=== PATIENT | male | born 1945 | race Caucasian/White ===

== ENCOUNTER 2017-01-29 17:01 | Emergency (ER) | payer BC, MEDICARE ==
[2017-01-29 17:29] VITALS: TEMP 98.9
[2017-01-29] MEDS ORDERED: ONDANSETRON 4 MG/2 ML VIAL IVP STA (18:33)
[2017-01-29] MEDS ORDERED: MORPHINE SULFATE 4 MG/ML SYRINGE IV STA (18:33)
[2017-01-29] MEDS ORDERED: SODIUM CHLORIDE 0.9% 1,000 ML IV STA ×2 (18:33)
[2017-01-29] MEDS ORDERED: RX INFO: IV CONTRAST WAS GIVEN 1 EACH MISC MISCELLANE PRN (18:33)
--- NOTE | 2017-01-29 18:44 | ED ---
Abdominal Pain HPI - General Chief Complaint: Abdominal Pain Stated Complaint: Left Lower Side Pain Time Seen by Provider: 01/29/17 18:17 Source: patient, RN notes reviewed, old records reviewed Mode of arrival: ambulatory Limitations: no limitations - History of Present Illness Initial Comments: This is a 71-year-old male presenting to emergency Department chief complaint of left lower quadrant abdominal pain for the past 12 hours. Patient reports that he started noticed this pain this morning. He states that he had a normal bowel movement earlier today but then afterwards he had some episodes of diarrhea. He states that he's had no fever or chills. He reports the pain is worse whenever he has to do certain movements. He states is a 1 out of 10 while lying flat. He states it was worse whenever headache over bumps in the car. He states he's had no vomiting. Normal urination, denies any hematuria or dysuria. Patient has a past medical history of vasectomy, bilateral shoulder surgeries. She reports these had a colonoscopy in the past which showed that he may have a few polyps. Denies any history of diverticulosis. - Related Data Home Medications Medication Instructions Recorded Confirmed Aspirin 81 mg PO DAILY 02/04/15 01/29/17 Losartan Potassium [Cozaar] 100 mg PO DAILY 01/29/17 01/29/17 Mirabegron [Myrbetriq] 25 mg PO DAILY 01/29/17 01/29/17 amLODIPine [Norvasc] 5 mg PO DAILY 01/29/17 01/29/17 metFORMIN HCL [Glucophage] 500 mg PO BID 01/29/17 01/29/17 Previous Rx's Medication Instructions Recorded Acetaminophen-Codeine 300-30mg 1 tab PO Q6H PRN #12 tablet 01/29/17 [Tylenol #3] Ciprofloxacin HCl [Cipro] 500 mg PO Q12HR 10 Days 01/29/17 metroNIDAZOLE [Flagyl] 500 mg PO TID #30 tab 01/29/17 Allergies Allergy/AdvReac Type Severity Reaction Status Date / Time Penicillins Allergy Confusion Verified 01/29/17 19:11 Sulfa (Sulfonamide Allergy Confusion Verified 01/29/17 19:11 Antibiotics) Review of Systems ROS Statement: Those systems with pertinent positive or pertinent negative responses have been documented in the HPI. ROS Other: All systems not noted in ROS Statement are negative. Past Medical History Past Medical History: Diabetes Mellitus, Hypertension History of Any Multi-Drug Resistant Organisms: None Reported Past Surgical History: Orthopedic Surgery Past Psychological History: No Psychological Hx Reported Smoking Status: Never smoker Past Alcohol Use History: None Reported Past Drug Use History: None Reported General Exam - General Exam Comments Initial Comments: This is a 71-year-old male. Patient does not appear to be in any acute distress. Limitations: no limitations General appearance: alert, in no apparent distress Head exam: Present: atraumatic, normocephalic, normal inspection Eye exam: Present: normal appearance, PERRL, EOMI. Absent: scleral icterus, conjunctival injection, periorbital swelling ENT exam: Present: normal exam, mucous membranes moist Neck exam: Present: normal inspection. Absent: tenderness, meningismus, lymphadenopathy Respiratory exam: Present: normal lung sounds bilaterally. Absent: respiratory distress, wheezes, rales, rhonchi, stridor Cardiovascular Exam: Present: regular rate, normal rhythm, normal heart sounds. Absent: systolic murmur, diastolic murmur, rubs, gallop, clicks GI/Abdominal exam: Present: soft, tenderness, normal bowel sounds, hernia ( Patient has evidence of ventral hernia. No erythema or tenderness over the site. Patient is tender over the left lower quadrant.), other. Absent: distended, guarding, rebound, rigid Extremities exam: Present: normal inspection, full ROM, normal capillary refill. Absent: tenderness, pedal edema, joint swelling, calf tenderness Back exam: Present: normal inspection Neurological exam: Present: alert, oriented X3, CN II-XII intact Psychiatric exam: Present: normal affect, normal mood Skin exam: Present: warm, dry, intact, normal color. Absent: rash Course Vital Signs 01/29/17 17:25 Temperature 98.9 F Pulse Rate 99 Respiratory 18 Rate Blood Pressure 142/91 O2 Sat by Pulse 96 Oximetry Medical Decision Making - Medical Decision Making 71-year-old male chief complaint of left lower quadrant abdominal pain for the past day. Patient received IV fluids and lab work. Patient is given morphine and Zofran for pain and nausea. Patient labwork showed mildly elevated leukocyte doses of 10.8. Liver enzymes and pancreatic enzymes appear normal. He is somewhat tender to the left lower quadrant. There is also a ventral hernia noted. He has no tenderness to the hernia site. Patient received a CT abdomen and pelvis with contrast. CT abdomen shows evidence of diverticulitis. Patient will be started on Cipro and Flagyl in the emergency department. Discussed that patient cannot have alcohol with these drugs. Discussed close follow-up with primary care physician. Patient will be discharged with pain medication. Return parameters were discussed. - Lab Data Result diagrams: 01/29/17 18:55 01/29/17 18:55 Lab Results 01/29/17 01/29/17 01/29/17 Range/Units 18:55 18:55 18:55 WBC 10.8 H (3.8-10.6) k/uL RBC 5.14 (4.30-5.90) m/uL Hgb 16.3 (13.0-17.5) gm/dL Hct 49.4 (39.0-53.0) % MCV 96.1 (80.0-100.0) fL MCH 31.7 (25.0-35.0) pg MCHC 33.0 (31.0-37.0) g/dL RDW 14.4 (11.5-15.5) % Plt Count 197 (150-450) k/uL Neutrophils % 76 % Lymphocytes % 15 % Monocytes % 5 % Eosinophils % 2 % Basophils % 1 % Neutrophils # 8.3 H (1.3-7.7) k/uL Lymphocytes # 1.7 (1.0-4.8) k/uL Monocytes # 0.5 (0-1.0) k/uL Eosinophils # 0.2 (0-0.7) k/uL Basophils # 0.1 (0-0.2) k/uL Sodium 141 (137-145) mmol/L Potassium 4.4 (3.5-5.1) mmol/L Chloride 105 (98-107) mmol/L Carbon Dioxide 26 (22-30) mmol/L Anion Gap 10 mmol/L BUN 10 (9-20) mg/dL Creatinine 0.79 (0.66-1.25) mg/dL Est GFR (MDRD) Af Amer >60 (>60 ml/min/1.73 sqM) Est GFR (MDRD) Non-Af >60 (>60 ml/min/1.73 sqM) Glucose 132 H (74-99) mg/dL Calcium 9.4 (8.4-10.2) mg/dL Total Bilirubin 0.3 (0.2-1.3) mg/dL AST 22 (17-59) U/L ALT 41 (21-72) U/L Alkaline Phosphatase 70 (38-126) U/L Total Protein 7.5 (6.3-8.2) g/dL Albumin 4.6 (3.5-5.0) g/dL Amylase 40 (30-110) U/L Lipase 105 (23-300) U/L Urine Color Yellow Urine Appearance Clear (Clear) Urine pH 5.5 (5.0-8.0) Ur Specific [place] 1.014 (1.001-1.035) Urine Protein Negative (Negative) Urine Glucose (UA) 3+ H (Negative) Urine Ketones Negative (Negative) Urine Blood Negative (Negative) Urine Nitrite Negative (Negative) Urine Bilirubin Negative (Negative) Urine Urobilinogen <2.0 (<2.0) mg/dL Ur Leukocyte Esterase Negative (Negative) - Radiology Data Radiology results: report reviewed Laboratory changes around the proximal sigmoid colon consistent with diverticulitis. No drainable fluid collection. Liver is normal size and contour. There is a 2 cm rounded hypodensity in the left lobe of the liver consistent with a cyst. Clips are cholecystectomy. Bowel gas are not dilated. No adrenal mass. Kidneys appear normal. No hydronephrosis. There is some thickening of the left side of the pain. Inflammatory changes of the descending colon and sigmoid colon multi didn't pull diverticula sigmoid colon. Appendix is normal. Disposition Clinical Impression: Diverticulitis Disposition: HOME SELF-CARE Condition: Good Instructions: Diverticulitis (ED), Diverticulitis Diet (ED) Additional Instructions: Advised of close follow-up with primary care physician. Take all the antibiotics as prescribed. Return to the emergency department if any alarming signs or symptoms occur. Prescriptions: Acetaminophen-Codeine 300-30mg [Tylenol #3] 1 tab PO Q6H PRN #12 tablet PRN Reason: Pain Ciprofloxacin HCl [Cipro] 500 mg PO Q12HR 10 Days metroNIDAZOLE [Flagyl] 500 mg PO TID #30 tab Referrals: Fede Walker MD [Primary Care Provider] - 1-2 days Time of Disposition: 20:13
[2017-01-29 19:06] LABS: Basophils # (A) 0.1 k/uL (0-0.2); Basophils % (A) 1 %; CH 33.1; CHCM 34.6; Eosinophils # (A) 0.2 k/uL (0-0.7); Eosinophils % (A) 2 %; HCT 49.4 % (39.0-53.0); HDW 2.65; HGB 16.3 gm/dL (13.0-17.5); Luc # (Auto) 0.12; Luc % (Auto) 1; Lymphocytes # (A) 1.7 k/uL (1.0-4.8); Lymphocytes % (A) 15 %; MCH 31.7 pg (25.0-35.0); MCV 96.1 fL (80.0-100.0); Mean Platelet Volume 7.9; Monocytes # (A) 0.5 k/uL (0-1.0); Monocytes % (A) 5 %; Neutrophils # (A) 8.3 k/uL (1.3-7.7); Neutrophils % (A) 76 %; RBC 5.14 m/uL (4.30-5.90); RDW 14.4 % (11.5-15.5); WBC 10.8 k/uL (3.8-10.6); WBC (Perox) 10.95
[2017-01-29 19:07] LABS: Appearance,Urine Clear (Clear); Bilirubin,Urine Negative (Negative); Glucose,Urine (UA) 3+ (Negative); Ketones,Urine Negative (Negative); Leukocyte Esterase,Urine Negative (Negative); Nitrite,Urine Negative (Negative); PH, Urine 5.5 (5.0-8.0); Protein,Urine Negative (Negative); Specific Gravity,Urine 1.014 (1.001-1.035); UA Billing (MACRO vs. MICRO) CHEM; Urobilinogen,Urine <2.0 mg/dL (<2.0)
[2017-01-29 19:15] LABS: ALT 41 U/L (21-72); AST 22 U/L (17-59); Alkaline Phosphatase 70 U/L (38-126); Amylase 40 U/L (30-110); Anion Gap 10 mmol/L; Blood Urea Nitrogen 10 mg/dL (9-20); Calcium 9.4 mg/dL (8.4-10.2); Carbon Dioxide 26 mmol/L (22-30); Chloride 105 mmol/L (98-107); Glucose 132 mg/dL (74-99); Non-African American GFR(MDRD) >60 (>60 ml/min/1.73 sqM); Potassium 4.4 mmol/L (3.5-5.1); Sodium 141 mmol/L (137-145); Total Bilirubin 0.3 mg/dL (0.2-1.3); Total Protein 7.5 g/dL (6.3-8.2)
--- NOTE | 2017-01-29 20:08 | CT ---
EXAMINATION TYPE: CT abdomen pelvis w con DATE OF EXAM: 01/29/2017 COMPARISON: NONE HISTORY: LLQ pain today. CT DLP: 1184.3 mGycm Automated exposure control for dose reduction was used. TECHNIQUE: Helical acquisition of images was performed from the lung bases through the pelvis. CONTRAST: Performed without Oral Contrast and with IV Contrast, patient injected with 100 mL of Omnipaque 300. FINDINGS: There is patchy linear density at the lung bases. There is no pleural effusion. Liver has normal size and contour. There is a 2 cm rounded hypodensity in the left lobe of the liver consistent with a cyst. There are clips from cholecystectomy. Bile ducts are not dilated. There is no pancreatic mass. Spleen appears normal. There is no adrenal mass. Kidneys show satisfactory contrast opacification. There is no hydronephrosi s. There is some thickening of the left side anterior pararenal space. There are some inflammatory ch anges at the junction of descending colon and sigmoid colon. There are multiple diverticula in the si gmoid colon. Appendix appears normal. Bladder distends smoothly. There is no pelvic mass. There is no retroperitoneal adenopathy. I see no bony destructive process. IMPRESSION: INFLAMMATORY CHANGES AROUND THE PROXIMAL SIGMOID COLON CONSISTENT WITH DIVERTICULITIS. NO DRAINABLE F LUID COLLECTION. MODERATE SIGMOID DIVERTICULOSIS. SMALL HEPATIC CYST. PATCHY FIBROSIS AND ATELECTASIS AT THE LUNG BASES.
[2017-01-29] MEDS ORDERED: metroNIDAZOLE 500 MG TAB PO STA (20:13)
[2017-01-29] MEDS ORDERED: LEVOFLOXACIN 750 MG TAB PO STA (20:13)
[2017-01-29 20:45] VITALS: BP 140/82; PULSE 91; RESP 17
== END 2017-01-29 20:32 | disposition home or self-care (01) ==
LOC: EC 17:01
DX: K57.32 Diverticulitis of large intestine without perforation or abscess without bleeding (principal); K43.9 Ventral hernia without obstruction or gangrene; E11.9 Type 2 diabetes mellitus without complications; I10 Essential (primary) hypertension; Z79.82 Long term (current) use of aspirin; Z79.84 Long term (current) use of oral hypoglycemic drugs; Z79.899 Other long term (current) drug therapy; Z88.0 Allergy status to penicillin; Z88.2 Allergy status to sulfonamides
CPT/HCPCS: 99284 ×2; 96374 ×2; 96375 ×2; 96361 ×2; 36415; 80053; 82150; 83690; 85025; 81003; 74177; J2270; J2405; Q9967

== ENCOUNTER 2017-12-14 07:49 | Day surgery (SDC) | payer MEDICARE ==
[2017-12-08 14:38] VITALS: BMI 28.7
[~2017-12-14 07:49] MED LIST: LACTATED RINGERS 1,000 ML IV SCH
[2017-12-14 08:11] LABS: Glucose,Whole Blood 107 mg/dL (75-99)
[2017-12-14] MEDS ORDERED: LIDOCAINE 1% INJ 10MG/ML (20 ML MDV) ONE (08:25)
[2017-12-14] MEDS ORDERED: PROPOFOL 10 MG/ML 20 ML VIAL IV ONE ×2 (08:25)
--- NOTE | 2017-12-14 08:29 | P.GSHP ---
History of Present Illness H&P Date: 12/14/17 Chief Complaint: Colon cancer screening Patient here today for colonoscopy. Last colonoscopy 5 years ago. History of colon polyps. Also had a history of diverticulitis 7-8 months ago. No current bowel related complaints. Past Medical History Past Medical History: Diabetes Mellitus, Hypertension History of Any Multi-Drug Resistant Organisms: None Reported Past Surgical History: Cholecystectomy, Orthopedic Surgery Additional Past Surgical History / Comment(s): Mohamud. shoulder surg x 4; Colonoscopy; Cataracts Past Anesthesia/Blood Transfusion Reactions: No Reported Reaction Smoking Status: Never smoker - Past Family History Sister(s) Family Medical History: Cancer Additional Family Medical History / Comment(s): Breast CA Medications and Allergies Home Medications Medication Instructions Recorded Confirmed Type Aspirin 81 mg PO DAILY 02/04/15 12/08/17 History Acetaminophen-Codeine 300-30mg 1 tab PO Q6H PRN #12 tablet 01/29/17 12/14/17 Rx [Tylenol #3] Losartan Potassium [Cozaar] 100 mg PO DAILY 01/29/17 12/08/17 History Mirabegron [Myrbetriq] 25 mg PO DAILY 01/29/17 12/08/17 History amLODIPine [Norvasc] 5 mg PO DAILY 01/29/17 12/08/17 History metFORMIN HCL [Glucophage] 500 mg PO BID 01/29/17 12/08/17 History Allergies Allergy/AdvReac Type Severity Reaction Status Date / Time Penicillins Allergy Confusion Verified 12/14/17 08:03 Sulfa (Sulfonamide Allergy Confusion Verified 12/14/17 08:03 Antibiotics) Surgical - Exam Physical exam: General: Well-developed, well-nourished HEENT: Normocephalic, sclerae nonicteric Abdomen: Nontender, nondistended Extremities: No edema Neuro: Alert and oriented Results - Labs Abnormal Lab Results - Last 24 Hours (Table) 12/14/17 Range/Units 08:08 POC Glucose (mg/dL) 107 H (75-99) mg/dL Assessment and Plan (1) Colon cancer screening Narrative/Plan: Will proceed with colonoscopy at this time Current Visit: Yes Status: Acute Code(s): Z12.11 - ENCOUNTER FOR SCREENING FOR MALIGNANT NEOPLASM OF COLON SNOMED Code(s): 381202580
[2017-12-14 08:33] VITALS: RESP 16; TEMP 97.3
--- NOTE | 2017-12-14 08:40 | P.PCN ---
Date of Procedure: 12/14/17 Procedure(s) Performed: PREOPERATIVE DIAGNOSIS: Colon cancer screening POSTOPERATIVE DIAGNOSIS: Extensive diverticulosis PROCEDURE: Colonoscopy ANESTHESIA: MAC SURGEON: Jaylan Babb M.D. SPECIMENS: None ENDOSCOPIC PROCEDURE: The patient was placed on the endoscopy table in the left decubitus position. The Olympus colonoscope was inserted into the anus and passed under direct visualization to the base of the cecum. The appendiceal orifice was visualized. From that point the scope was slowly withdrawn inspecting all surfaces carefully. There were no neoplastic inflammatory or polypoid lesions throughout the cecum, ascending, transverse, descending, sigmoid and rectum. There was extensive diverticulosis noted throughout the left colon. Digital rectal examination was normal. The patient was taken to the recovery room in stable condition per anesthesia guidelines. RECOMMENDATIONS: Increase fiber. Follow-up colonoscopy in 5 years.
[2017-12-14 09:07] VITALS: BP 114/76; PULSE 68
== END 2017-12-14 09:48 | disposition home or self-care (01) ==
LOC: ORWHC2ENDO 07:49
PROVIDERS: ATTEND Surgery
DX: Z12.11 Encounter for screening for malignant neoplasm of colon (principal); K57.30 Diverticulosis of large intestine without perforation or abscess without bleeding; E11.9 Type 2 diabetes mellitus without complications; I10 Essential (primary) hypertension; Z90.49 Acquired absence of other specified parts of digestive tract; Z79.82 Long term (current) use of aspirin; Z79.899 Other long term (current) drug therapy; Z80.3 Family history of malignant neoplasm of breast; Z79.84 Long term (current) use of oral hypoglycemic drugs; Z88.0 Allergy status to penicillin; Z88.2 Allergy status to sulfonamides
CPT/HCPCS: J2001; J2704; G0105; 45378

== ENCOUNTER 2021-04-30 08:49 | Emergency (ER) | payer MEDICARE ==
[2021-04-30 08:54] VITALS: RESP 18
--- NOTE | 2021-04-30 09:15 | ED ---
General Adult HPI - General Chief complaint: Weakness Stated complaint: covid+, wants infusion Time Seen by Provider: 04/30/21 08:59 Source: patient Mode of arrival: ambulatory Limitations: no limitations - History of Present Illness Initial comments: Dictation was produced using [employer] dictation software. please excuse any grammatical, word or spelling errors. Chief Complaint: 75-year-old male with positive coronavirus tests presents emergency department for weakness History of Present Illness: 75-year-old male. He's been symptomatic of coronavirus for the last 6 days. He had a test done 2 days ago tested positive. Presents to the emergency department today for evaluation. Patient states she has no shortness of breath. He also has constitutional symptoms and diarrhea. Patient denies any chest pain. Denies any medical problems. The ROS documented in this emergency department record has been reviewed and confirmed by me. Those systems with pertinent positive or negative responses have been documented in the HPI. All other systems are other negative and/or noncontributory. PHYSICAL EXAM: General Impression: Alert and oriented x3, not in acute distress HEENT: Normocephalic atraumatic, extra-ocular movements intact, pupils equal and reactive to light bilaterally, mucous membranes moist. Cardiovascular: Heart regular rate and rhythm Chest: Able to complete full sentences, no retractions, no tachypnea Abdomen: abdomen soft, non-tender, non-distended, no organomegaly Musculoskeletal: Pulses present and equal in all extremities, no peripheral edema Motor: no focal deficits noted Neurological: CN II-XII grossly intact, no focal motor or sensory deficits noted Skin: Intact with no visualized rashes Psych: Normal affect and mood ED course: Patient is 75-year-old male tested positive for coronavirus 2 days ago. His been symptomatic for the last 6 days. He denies any medical problems. His chief complaint today's weakness. Vital signs upon arrival shows 93% on room air, heart rate of 107, rest of vital signs within acceptable limits.Laboratory evaluation obtained. CBC unremarkable. Metabolic panel shows mild sodium 131, mild acidosis. Rest of labs unremarkable. Chest x-ray shows basilar atelectasis versus early infiltrate. Ambulatory pulse ox is 92%. Patient reevaluated at bedside found to be in stable medical condition. Patient given monoclonal antibodies. Observed in emergency department for one hour after infusion and discharged. - Related Data Home Medications Medication Instructions Recorded Confirmed Aspirin 81 mg PO DAILY 02/04/15 12/08/17 Losartan Potassium [Cozaar] 100 mg PO DAILY 01/29/17 12/08/17 Mirabegron [Myrbetriq] 25 mg PO DAILY 01/29/17 12/08/17 amLODIPine [Norvasc] 5 mg PO DAILY 01/29/17 12/08/17 metFORMIN HCL [Glucophage] 500 mg PO BID 01/29/17 12/08/17 Previous Rx's Medication Instructions Recorded Acetaminophen-Codeine 300-30mg 1 tab PO Q6H PRN #12 tablet 01/29/17 [Tylenol #3] Allergies Allergy/AdvReac Type Severity Reaction Status Date / Time Penicillins Allergy Confusion Verified 04/30/21 08:54 Sulfa (Sulfonamide Allergy Confusion Verified 04/30/21 08:54 Antibiotics) Review of Systems ROS Statement: Those systems with pertinent positive or pertinent negative responses have been documented in the HPI. ROS Other: All systems not noted in ROS Statement are negative. Past Medical History Past Medical History: Diabetes Mellitus, Hypertension History of Any Multi-Drug Resistant Organisms: None Reported Past Surgical History: Cholecystectomy, Orthopedic Surgery Additional Past Surgical History / Comment(s): Mohamud. shoulder surg x 4; Colonoscopy; Cataracts Past Anesthesia/Blood Transfusion Reactions: No Reported Reaction Past Psychological History: No Psychological Hx Reported Smoking Status: Never smoker Past Alcohol Use History: None Reported Past Drug Use History: None Reported - Past Family History Sister(s) Family Medical History: Cancer Additional Family Medical History / Comment(s): Breast CA General Exam Limitations: no limitations Course Vital Signs 04/30/21 04/30/21 04/30/21 08:50 09:38 10:42 Temperature 99.6 F Pulse Rate 107 H Respiratory 18 18 Rate Blood Pressure 101/65 O2 Sat by Pulse 93 L 92 L Oximetry 04/30/21 10:54 Temperature 98.0 F Pulse Rate 90 Respiratory 18 Rate Blood Pressure 106/71 O2 Sat by Pulse 92 L Oximetry Medical Decision Making - Lab Data Result diagrams: 04/30/21 09:38 04/30/21 09:38 Lab Results 04/30/21 04/30/21 Range/Units 09:38 09:38 WBC 5.6 (3.8-10.6) k/uL RBC 4.89 (4.30-5.90) m/uL Hgb 15.4 (13.0-17.5) gm/dL Hct 46.3 (39.0-53.0) % MCV 94.6 (80.0-100.0) fL MCH 31.5 (25.0-35.0) pg MCHC 33.3 (31.0-37.0) g/dL RDW 12.8 (11.5-15.5) % Plt Count 153 (150-450) k/uL MPV 7.8 Neutrophils % 73 % Lymphocytes % 20 % Monocytes % 5 % Eosinophils % 0 % Basophils % 1 % Neutrophils # 4.1 (1.3-7.7) k/uL Lymphocytes # 1.1 (1.0-4.8) k/uL Monocytes # 0.3 (0-1.0) k/uL Eosinophils # 0.0 (0-0.7) k/uL Basophils # 0.0 (0-0.2) k/uL Sodium 131 L (137-145) mmol/L Potassium 4.6 (3.5-5.1) mmol/L Chloride 100 (98-107) mmol/L Carbon Dioxide 18 L (22-30) mmol/L Anion Gap 13 mmol/L BUN 23 H (9-20) mg/dL Creatinine 1.00 (0.66-1.25) mg/dL Est GFR (CKD-EPI)AfAm 84 (>60 ml/min/1.73 sqM) Est GFR (CKD-EPI)NonAf 72 (>60 ml/min/1.73 sqM) Glucose 201 H (74-99) mg/dL Calcium 8.9 (8.4-10.2) mg/dL Disposition Clinical Impression: Coronavirus infection Disposition: HOME SELF-CARE Condition: Fair Instructions (If sedation given, give patient instructions): Coronavirus Disease 2019 (COVID-19) Is patient prescribed a controlled substance at d/c from ED?: No Referrals: Evaristo Simeon MD [Primary Care Provider] - 1-2 days
--- NOTE | 2021-04-30 09:55 | XR ---
EXAMINATION TYPE: XR chest 1V portable DATE OF EXAM: 04/30/2021 COMPARISON: 02/04/2015 HISTORY: Cough TECHNIQUE: Single frontal view of the chest is obtained. FINDINGS: Heart size normal. No evidence of interstitial edema or pneumothorax. Arthropathy right sh oulder postsurgical change left shoulder subsegmental changes left lung base. IMPRESSION: Left basilar atelectasis versus early infiltrate
[2021-04-30] MEDS ORDERED: SODIUM CHLORIDE 0.9% 50 ML IVPB ONE (10:15)
[2021-04-30 10:19] LABS: Basophils % (A) 1 %; Eosinophils % (A) 0 %; HCT 46.3 % (39.0-53.0); HGB 15.4 gm/dL (13.0-17.5); Lymphocytes # (A) 1.1 k/uL (1.0-4.8); Lymphocytes % (A) 20 %; MCH 31.5 pg (25.0-35.0); MCHC 33.3 g/dL (31.0-37.0); MCV 94.6 fL (80.0-100.0); Mean Platelet Volume 7.8; Monocytes # (A) 0.3 k/uL (0-1.0); Monocytes % (A) 5 %; Neutrophils # (A) 4.1 k/uL (1.3-7.7); Neutrophils % (A) 73 %; Platelet Count 153 k/uL (150-450); RBC 4.89 m/uL (4.30-5.90); RDW 12.8 % (11.5-15.5); WBC 5.6 k/uL (3.8-10.6)
[2021-04-30] MEDS ORDERED: CASIRIVIMAB (REGN10933) (EUA) 600 MG, IMDEVIMAB (REGN10987) (EUA) 600 MG in SODIUM CHLO... IVPB ONE (10:30)
[2021-04-30 10:33] LABS: Calcium 8.9 mg/dL (8.4-10.2)
[2021-04-30 10:46] LABS: Potassium 4.6 mmol/L (3.5-5.1)
[2021-04-30 10:55] VITALS: TEMP 98
[2021-04-30 12:38] VITALS: BP 120/71; PULSE 88
== END 2021-04-30 12:38 | disposition home or self-care (01) ==
LOC: EC 08:49
DX: U07.1 COVID-19 (principal); I10 Essential (primary) hypertension; E11.36 Type 2 diabetes mellitus with diabetic cataract; Z79.82 Long term (current) use of aspirin; Z79.84 Long term (current) use of oral hypoglycemic drugs; Z88.0 Allergy status to penicillin; Z88.2 Allergy status to sulfonamides; Z90.49 Acquired absence of other specified parts of digestive tract; Z80.3 Family history of malignant neoplasm of breast
CPT/HCPCS: 36415; 80048; 85025; 71045; 96365; 96366; 99285; Q0243

== ENCOUNTER 2021-09-04 09:28 | Observation (INO) | payer MEDICARE ==
--- NOTE | 2021-09-04 09:58 | ED ---
Chest Pain HPI - General Chief Complaint: Chest Pain Stated Complaint: Chest pain Source: patient Mode of arrival: wheelchair Limitations: no limitations - History of Present Illness Initial Comments: 75-year-old male with past medical history of diabetes, hypertension presents emergency Department with reported exertional dyspnea for the past 2 weeks. Reports that when he walks up a flight of stairs or across a room he has worsening shortness of breath which is not typical for him. Has a central discomfort in his chest where feels like someone is sitting. Denies previous history of coronary disease or cardiac arrhythmia. She has had previous stress testing however this was decades ago. Reports that he is normally very active person therefore he shortness of breath is atypical for him. Denies fevers, chills or cough. No abdominal pain. No pain into his back or jaw. No associated nausea, vomiting or diaphoresis. Admits to a significant family history of cardiac disease. He went to see Dr. Simeon earlier today in office when he hurt his symptoms he immediately had him come to the emergency department. No other alleviating, precipitating or modifying factors - Related Data Home Medications Medication Instructions Recorded Confirmed Aspirin 81 mg PO DAILY 02/04/15 09/04/21 Losartan Potassium [Cozaar] 100 mg PO DAILY 01/29/17 09/04/21 amLODIPine [Norvasc] 5 mg PO DAILY 01/29/17 09/04/21 metFORMIN HCL [Glucophage] 500 mg PO BID 01/29/17 09/04/21 Atorvastatin [Lipitor] 10 mg PO HS 09/04/21 09/04/21 Glimepiride [Amaryl] 2 mg PO BID 09/04/21 09/04/21 Multivitamins, Thera [Multivitamin 1 tab PO DAILY 09/04/21 09/04/21 (formulary)] Tamsulosin [Flomax] 0.4 mg PO BID 09/04/21 09/04/21 Vit C/E/Zn/Coppr/Lutein/Zeaxan 1 cap PO BID 09/04/21 09/04/21 [Preservision Areds 2 Softgel] Allergies Allergy/AdvReac Type Severity Reaction Status Date / Time Penicillins Allergy syncope Verified 09/04/21 10:10 Sulfa (Sulfonamide Allergy Confusion Verified 09/04/21 10:10 Antibiotics) Review of Systems ROS Statement: Those systems with pertinent positive or pertinent negative responses have been documented in the HPI. ROS Other: All systems not noted in ROS Statement are negative. EKG Findings - EKG Comments: EKG Findings:: EKG demonstrates a sinus rhythm with a rate of 74. WA interval 186. QRS 110. QTC of 424. No acute ST segment elevations or depressions concerning for ischemic changes Past Medical History Past Medical History: Diabetes Mellitus, Hypertension History of Any Multi-Drug Resistant Organisms: None Reported Past Surgical History: Cholecystectomy, Orthopedic Surgery Additional Past Surgical History / Comment(s): Mohamud. shoulder surg x 4; Colonoscopy; Cataracts Past Anesthesia/Blood Transfusion Reactions: No Reported Reaction Past Psychological History: No Psychological Hx Reported Smoking Status: Never smoker Past Alcohol Use History: None Reported Past Drug Use History: None Reported - Past Family History Sister(s) Family Medical History: Cancer Additional Family Medical History / Comment(s): Breast CA General Exam Limitations: no limitations Course Vital Signs 09/04/21 09/04/21 09/04/21 09:30 09:48 09:56 Temperature 97.5 F L Pulse Rate 82 74 Respiratory 16 18 18 Rate Blood Pressure 174/87 142/82 O2 Sat by Pulse 98 96 Oximetry 09/04/21 12:02 Temperature Pulse Rate 80 Respiratory 18 Rate Blood Pressure 126/78 O2 Sat by Pulse 100 Oximetry Chest Pain MDM - MDM Upon arrival patient is placed in room 7. A thorough history and physical exam was performed. IV access is established laboratory studies were conducted. Laboratory studies are reviewed. D-dimer 0.33. Troponin is negative. Chest x- ray demonstrates no acute process. Did recommend admission for echo and cardiology consultation reports the patient did agree to. Patient awaiting a bed on the floor in stable condition Disposition Clinical Impression: Chest pain Disposition: ADMITTED IP TO THIS HOSP Condition: Stable Is patient prescribed a controlled substance at d/c from ED?: No Decision to Admit Reason: Admit from EC Decision Date: 09/04/21 Decision Time: 12:40
[2021-09-04 10:28] LABS: Basophils # (A) 0.1 k/uL (0-0.2); Basophils % (A) 1 %; Eosinophils # (A) 0.3 k/uL (0-0.7); Eosinophils % (A) 4 %; HCT 44.9 % (39.0-53.0); Lymphocytes # (A) 1.9 k/uL (1.0-4.8); Lymphocytes % (A) 33 %; MCH 32.1 pg (25.0-35.0); MCHC 33.3 g/dL (31.0-37.0); MCV 96.3 fL (80.0-100.0); Mean Platelet Volume 7.8; Monocytes # (A) 0.3 k/uL (0-1.0); Monocytes % (A) 5 %; Neutrophils # (A) 3.3 k/uL (1.3-7.7); Neutrophils % (A) 55 %; Platelet Count 149 k/uL (150-450); RBC 4.66 m/uL (4.30-5.90); RDW 13.1 % (11.5-15.5); WBC 5.9 k/uL (3.8-10.6)
--- NOTE | 2021-09-04 10:35 | XR ---
EXAMINATION TYPE: XR chest 2V DATE OF EXAM: 09/04/2021 COMPARISON: Chest x-ray April 30, 2021 HISTORY: Chest pressure and shortness of breath TECHNIQUE: Frontal and lateral views of the chest are obtained. FINDINGS: There is mild chronic parenchymal change bilaterally without suspicious focal air space op acity, pleural effusion, or pneumothorax seen. The cardiac silhouette size is stable and upper limit s of normal. Surgical change left shoulder is partially imaged. Cholecystectomy clips are noted. IMPRESSION: No acute process.
[2021-09-04 10:43] LABS: ALT 35 U/L (4-49); AST 30 U/L (17-59); African American GFR (CKD) >90 (>60 ml/min/1.73 sqM); Albumin 4.5 g/dL (3.5-5.0); Alkaline Phosphatase 65 U/L (38-126); Anion Gap 6 mmol/L; Blood Urea Nitrogen 12 mg/dL (9-20); Carbon Dioxide 26 mmol/L (22-30); Chloride 105 mmol/L (98-107); Glucose 141 mg/dL (74-99); Magnesium 1.8 mg/dL (1.6-2.3); Non-African American GFR(CKD) 90 (>60 ml/min/1.73 sqM); Potassium 4.3 mmol/L (3.5-5.1); Sodium 137 mmol/L (137-145); Total Bilirubin 0.6 mg/dL (0.2-1.3); Total Protein 7.4 g/dL (6.3-8.2)
[2021-09-04 10:48] LABS: INR 1.1 (<1.2); Partial Thromboplastin Time 24.4 sec (22.0-30.0); Prothrombin Time 11.5 sec (9.0-12.0)
[2021-09-04] MEDS ORDERED: NALOXONE 0.4 MG/ML 1 ML VIAL IV PRN (12:40)
[2021-09-04 13:21] LABS: Glucose,Whole Blood 149 mg/dL (75-99)
[2021-09-04] MEDS: ACETAMINOPHEN TAB 325 MG TAB PO PRN ×2 (15:40→21:23)
--- NOTE | 2021-09-04 16:31 | ECHOF ---
Referral Reason:exertional dyspnea MEASUREMENTS -------- HEIGHT: 177.8 cm WEIGHT: 93.9 kg BP: 126/78 IVSd: 1.3 cm (0.6 - 1.1) LVIDd: 4.7 cm (3.9 - 5.3) LVPWd: 1.3 cm (0.6 - 1.1) IVSs: 1.9 cm LVIDs: 4.1 cm LVPWs: 1.6 cm LA Diam: 2.7 cm (2.7 - 3.8) RVIDd: 3.6 cm (< 3.3) Ao Diam: 3.9 cm (2.0 - 3.7) AV Cusp: 2.6 cm (1.5 - 2.6) EPSS: 1.9 cm MV E Simone: 0.53 m/s MV DecT: 312 ms MV A Simone: 0.98 m/s MV E/A Ratio: 0.54 AR PHT: 1150 ms RAP: 5.00 mmHg RVSP: 27.00 mmHg MV EF SLOPE: 43.35 mm/s (70 - 150) MV EXCURSION: 15.23 mm (> 18.000) FINDINGS -------- Sinus rhythm. This was a technically adequate study. The left ventricular size is normal. There is mild concentric left ventricular hypertrophy. Overa ll left ventricular systolic function is severely impaired with, an EF between 25 - 30 %. The right ventricle is mildly enlarged. The left atrium is normal in size. The right atrium is normal in size. There is mild aortic valve sclerosis. There is [id number] aortic regurgitation. There is trace mitral regurgitation. There is mild pulmonary hypertension. The right ventricular systolic pressure, as measured by Doppl er, is 27.00mmHg. Trace/mild (physiologic) pulmonic regurgitation. The aortic root is dilated measuring 3.9cm. IVC Not well visulized. There is no pericardial effusion. CONCLUSIONS -------- 1. The left ventricular size is normal. 2. There is mild concentric left ventricular hypertrophy. 3. Overall left ventricular systolic function is severely impaired with, an EF between 25 - 30 %. 4. The right ventricle is mildly enlarged. 5. There is mild aortic valve sclerosis. 6. There is sjvy-[id number]-whxtakyd aortic regurgitation. 7. There is trace mitral regurgitation. 8. There is mild pulmonary hypertension. 9. Trace/mild (physiologic) pulmonic regurgitation. 10. The aortic root is dilated measuring 3.9cm. 11. There is no pericardial effusion. PURLER: Ruchi Mata RDCS
[2021-09-04 17:33] LABS: Glucose,Whole Blood 193 mg/dL (75-99)
[2021-09-04] MEDS: metFORMIN 500 MG TAB PO SCH (18:00)
[2021-09-04] MEDS: INSULIN ASPART (NovoLOG) 100 UNIT/ML VIAL SQ SCH ×2 (18:00→21:24)
[2021-09-04] MEDS: GLIMEPIRIDE 2 MG TAB PO SCH (18:12)
[2021-09-04 21:12] LABS: Glucose,Whole Blood 163 mg/dL (75-99)
[2021-09-04] MEDS: TAMSULOSIN 0.4 MG CAP.ER.24H PO SCH (21:23)
[2021-09-04] MEDS: ATORVASTATIN 10 MG TAB PO SCH (21:23)
[2021-09-05] MEDS: INSULIN ASPART (NovoLOG) 100 UNIT/ML VIAL SQ SCH ×4 (07:37→21:50)
[2021-09-05] MEDS: metFORMIN 500 MG TAB PO SCH (07:38)
[2021-09-05] MEDS: GLIMEPIRIDE 2 MG TAB PO SCH ×2 (07:38→17:41)
[2021-09-05 07:39] LABS: Glucose,Whole Blood 146 mg/dL (75-99)
[2021-09-05] MEDS: TAMSULOSIN 0.4 MG CAP.ER.24H PO SCH ×2 (07:40→20:04)
[2021-09-05] MEDS: ASPIRIN 81 MG PO SCH (07:40)
[2021-09-05] MEDS: MULTIVITAMINS, THERA 1 EACH TAB PO SCH (07:40)
[2021-09-05] MEDS: LOSARTAN 50 MG TAB PO SCH (07:40)
[2021-09-05 08:59] LABS: Basophils # (A) 0.05 X 10*3/uL (0.00-0.10); Basophils % (A) 0.8 %; Eosinophils # (A) 0.38 X 10*3/uL (0.04-0.35); Eosinophils % (A) 6.4 %; HCT 45.2 % (39.6-50.0); HGB 15.1 g/dL (13.0-17.0); Immature Grans, Automated 0.2 %; Lymphocytes # (A) 2.31 X 10*3/uL (0.90-5.00); Lymphocytes % (A) 38.6 %; MCH 31.5 pg (27.0-32.0); MCHC 33.4 g/dL (32.0-37.0); MCV 94.2 fL (80.0-97.0); Mean Platelet Volume 10.5 fL (9.5-12.2); Monocytes % (A) 8.4 %; NRBC Per 100 WBC 0 /100 WBCS (0.0-0.0); Neutrophils # (A) 2.73 X 10*3/uL (1.80-7.70); Neutrophils % (A) 45.6 %; Platelet Count 158 X 10*3/uL (140-440); RDW 12.7 % (11.5-14.5); WBC 5.98 X 10*3/uL (4.50-10.00)
[2021-09-05] MEDS ORDERED: amLODIPine 5 MG TAB PO SCH (09:00)
[2021-09-05 09:23] LABS: African American GFR (CKD) 95.1 (60.0-200.0); Anion Gap 10.8 mmol/L (10.00-18.00); BUN/Creat Ratio 16.56 Ratio (12.00-20.00); Blood Urea Nitrogen 14.9 mg/dL (9.0-27.0); Calcium 9.5 mg/dL (8.7-10.3); Carbon Dioxide 25.2 mmol/L (20.0-27.5); Non-African American GFR(CKD) 82.1 (60.0-200.0); Potassium 4.5 mmol/L (3.5-5.5)
[2021-09-05] MEDS ORDERED: LIDOCAINE 1% INJ 10MG/ML (20 ML MDV) ONE (11:45)
[2021-09-05] MEDS ORDERED: ALPRAZolam 0.25 MG TAB PO PRN (11:48)
[2021-09-05] MEDS ORDERED: ALPRAZolam 0.5 MG TAB PO PRN (11:48)
[2021-09-05] MEDS ORDERED: NITROGLYCERIN SL TABS 0.4 MG TAB SUBLINGUAL PRN (11:48)
[2021-09-05] MEDS ORDERED: ASPIRIN 325 MG TAB PO STA (11:48)
[2021-09-05] MEDS ORDERED: VERAPAMIL 2.5 MG/ML 2 ML AMP ONE (11:49)
[2021-09-05] MEDS ORDERED: fentaNYL (PF) 50 MCG/ML 2 ML AMP ONE (11:52)
[2021-09-05] MEDS ORDERED: HEPARIN SODIUM 1,000 UN/ML (10ML VL) ONE (11:52)
--- NOTE | 2021-09-05 11:57 | P.HPIM ---
History of Present Illness H&P Date: 09/05/21 Chief Complaint: Chest pain Patient is a pleasant 75-year-old male who was referred to the emergency room after coming to the office reporting chest pain and dyspnea. He had reported increasing exertional dyspnea for the past 2 weeks. Describes the chest pain as someone sitting on the middle of his chest. Patient has a pertinent medical history of type 2 diabetes, hypertension, hyperlipidemia, GERD, diverticular disease, benign prostate hyperplasia, osteoarthritis and history of skin cancer. Chest x-ray showed no acute processes. EKG shows sinus rhythm with left axis deviation. Troponins were negative. Echocardiogram shows mild concentric left ventricular hypertrophy, overall left ventricle systolic function severely impaired with an EF of 25-30%. Cardiology was consulted. Review of Systems Constitutional: Denies chills, Denies fever Eyes: denies blurred vision Ears, nose, mouth and throat: Denies headache, Denies vertigo Cardiovascular: Reports chest pain, Reports dyspnea on exertion, Reports shortness of breath Respiratory: Denies cough, Denies wheezing Gastrointestinal: Denies abdominal pain, Denies nausea Genitourinary: Denies dysuria Musculoskeletal: Denies gait dysfunction, Denies neck stiffness Integumentary: Denies rash, Denies wounds Neurological: Denies balance difficulties, Denies weakness Psychiatric: Denies anxiety, Denies depression Endocrine: Denies low blood sugars, Denies weight change Hematologic/Lymphatic: Denies easy bruising Allergic/Immunologic: Denies angioedema, Denies wheezing Past Medical History Past Medical History: Cancer, Diabetes Mellitus, Eye Disorder, GERD/Reflux, Hyperlipidemia, Hypertension, Osteoarthritis (OA), Prostate Disorder, Renal Disease Additional Past Medical History / Comment(s): NIDDM type II, diverticular disease, benign colon polyps, BPH, kidney stones, skin cancer with removal, sinus issues, beginnings of macular degeneration, 04/2021 covid. History of Any Multi-Drug Resistant Organisms: None Reported Past Surgical History: Cholecystectomy, Heart Catheterization, Joint Replacement, Orthopedic Surgery Additional Past Surgical History / Comment(s): bilateral rotator cuff surgeries x 4, total L shoulder arthroplasty, R hand cyst removed, skin cancer removal, colonoscopies, bilateral cataract removals Past Anesthesia/Blood Transfusion Reactions: No Reported Reaction Smoking Status: Never smoker - Past Family History Sister(s) Family Medical History: Cancer Additional Family Medical History / Comment(s): Breast CA Mother Additional Family Medical History / Comment(s): Mother of pancreatitis. She had heart problems too. Father Family Medical History: Cancer, COPD, Diabetes Mellitus Additional Family Medical History / Comment(s): skin cancer Medications and Allergies Home Medications Medication Instructions Recorded Confirmed Type Aspirin 81 mg PO DAILY 02/04/15 09/04/21 History Losartan Potassium [Cozaar] 100 mg PO DAILY 01/29/17 09/04/21 History amLODIPine [Norvasc] 5 mg PO DAILY 01/29/17 09/04/21 History metFORMIN HCL [Glucophage] 500 mg PO BID 01/29/17 09/04/21 History Atorvastatin [Lipitor] 10 mg PO HS 09/04/21 09/04/21 History Glimepiride [Amaryl] 2 mg PO BID 09/04/21 09/04/21 History Multivitamins, Thera [Multivitamin 1 tab PO DAILY 09/04/21 09/04/21 History (formulary)] Tamsulosin [Flomax] 0.4 mg PO BID 09/04/21 09/04/21 History Vit C/E/Zn/Coppr/Lutein/Zeaxan 1 cap PO BID 09/04/21 09/04/21 History [Preservision Areds 2 Softgel] Allergies Allergy/AdvReac Type Severity Reaction Status Date / Time Penicillins Allergy syncope Verified 09/04/21 10:10 Sulfa (Sulfonamide Allergy Confusion Verified 09/04/21 10:10 Antibiotics) Physical Exam Vitals: Vital Signs Temp Pulse Pulse Resp BP BP BP 09/05/21 07:00 97.5 F L 68 16 142/73 09/05/21 01:05 97.4 F L 75 18 141/74 09/04/21 20:00 77 09/04/21 19:55 98.5 F 77 18 123/66 09/04/21 16:42 79 18 09/04/21 16:35 97.3 F L 79 18 149/86 09/04/21 15:44 78 18 128/74 09/04/21 12:02 80 18 126/78 Pulse Ox 09/05/21 07:00 93 L 09/05/21 01:05 95 09/04/21 20:00 09/04/21 19:55 93 L 09/04/21 16:42 09/04/21 16:35 95 09/04/21 15:44 99 09/04/21 12:02 100 Intake and Output 09/04/21 09/05/21 09/05/21 22:59 06:59 14:59 Intake Total 120 Balance 120 Intake: Oral 120 Other: Voiding Method Toilet Toilet # Voids 1 2 Weight 93.894 kg - Constitutional General appearance: average body habitus, cooperative, no acute distress - EENT Eyes: EOMI, PERRLA ENT: normal oropharynx Ears: bilateral: normal - Neck Neck: normal ROM - Respiratory Respiratory: bilateral: diminished - Cardiovascular Heart rate: 70 Rhythm: regular Heart sounds: normal: S1, S2 - Gastrointestinal General gastrointestinal: normal bowel sounds, soft - Integumentary Integumentary: normal - Neurologic Neurologic: CNII-XII intact - Musculoskeletal Musculoskeletal: gait normal - Psychiatric Psychiatric: A&O x's 3, appropriate affect, intact judgment & insight Results CBC & Chem 7: 09/05/21 05:46 09/05/21 05:46 Labs: Abnormal Lab Results - Last 24 Hours (Table) 09/04/21 09/04/21 09/04/21 Range/Units 13:19 17:28 21:11 Eosinophils # (0.04-0.35) X 10*3/uL Glucose (70-110) mg/dL POC Glucose (mg/dL) 149 H 193 H 163 H (75-99) mg/dL 09/05/21 09/05/21 09/05/21 Range/Units 05:46 05:46 07:26 Eosinophils # 0.38 H (0.04-0.35) X 10*3/uL Glucose 128 H (70-110) mg/dL POC Glucose (mg/dL) 146 H (75-99) mg/dL Chest x-ray: report reviewed Thrombosis Risk Factor Assmnt - DVT/VTE Prophylaxis DVT/VTE Prophylaxis: Pharmacologic Prophylaxis ordered - Choose All That Apply Any of the Below Risk Factors Present?: Yes Each Factor Represents 1 point: Obesity (BMI >25) Other Risk Factors: Yes Each Risk Factor Represents 2 Points: Age 61-74 years Other congenital or acquired thrombophilia - If yes, enter type in comment: No Thrombosis Risk Factor Assessment Total Risk Factor Score: 3 Thrombosis Risk Factor Assessment Level: Moderate Risk Assessment and Plan Assessment: Chest pain, rule out ACS Systolic heart failure with impaired EF between 20-30% Hypertension Type 2 diabetes Hyperlipidemia Osteoarthritis Benign prostate hyperplasia Plan: Cardiology consultation for chest pain and impaired ejection fraction Monitor blood glucose before meals at bedtime, home medication and sliding scale ordered Protonix ordered for GI prophylaxis Heparin sq for DVT prophylaxis Further recommendations to come based on patient's clinical course Time with Patient: Greater than 30
[2021-09-05] MEDS ORDERED: SODIUM CHLORIDE 0.9% 1,000 ML IV ONE (12:08)
--- NOTE | 2021-09-05 12:10 | P.CRDCN ---
History of Present Illness History of present illness: This is Dr. Tapia dictating an H/P on this patient The patient was interviewed and examined IMPRESSION / ASSESSMENT: Patient complains of shortness of breath and exertion with a normal BNP. Left ventricle systolic function is reduced, no evidence for CHF even on a chest x-ray, normal BNP Patient complains of chest discomfort with a normal twelve-lead EKG without any ST segment abnormalities and normal troponins Type 2 diabetes Symptoms are provoked by climbing 1 flight of stairs PLAN: In view of type 2 diabetes, hypertension shortness of breath on exertion associated with chest pressure and a normal BNP and reduced LV systolic function I would recommend coronary angiography. I spoke to Dr. Hernandez. We'll proceed with coronary telemetry today For the management thereafter HPI patient was short of breath for the last 2 weeks. Shortness of breath after climbing a flight of stairs Mid chest discomfort History of hypertension, on losartan and amlodipine History of diabetes, dyslipidemia, on atorvastatin ALLERGIES to penicillin and sulfa ROS: No fever chills or rigors, no cough, phlegm or expectoration, no nausea, vomiting or diarrhea, no hematuria, dysuria, no musculoskeletal complaints, no strokes or seizures, no skin lesions. EXAMINATION: Blood pressure 142/82 mmHg, respirations nonlabored Pulse rate in the 70s and 80s, afebrile Normal heart sounds no murmurs or gallops Breath sounds are clear no rhonchi no crackles No JVD Patient was ambulating around comfortably in the room REVIEW OF LABS, ECG & MEDICAL DATA Twelve-lead EKG shows sinus rhythm normal SC narrow QRS normal ST segments left axis deviation No evidence for ischemia No abnormalities and chest x-ray 2-D echo shows severe LV dysfunction ejection fraction 25-30%, mildly enlarged RV Normal white count, hemoglobin 15, platelet count 149,000 Sodium 137 potassium 4.3 BUN/creatinine normal D-dimer normal Troponins normal BMP, NT pro is normal Past Medical History Past Medical History: Cancer, Diabetes Mellitus, Eye Disorder, GERD/Reflux, Hyperlipidemia, Hypertension, Osteoarthritis (OA), Prostate Disorder, Renal Disease Additional Past Medical History / Comment(s): NIDDM type II, diverticular disease, benign colon polyps, BPH, kidney stones, skin cancer with removal, sinus issues, beginnings of macular degeneration, 04/2021 covid. History of Any Multi-Drug Resistant Organisms: None Reported Past Surgical History: Cholecystectomy, Heart Catheterization, Joint Replacement, Orthopedic Surgery Additional Past Surgical History / Comment(s): bilateral rotator cuff surgeries x 4, total L shoulder arthroplasty, R hand cyst removed, skin cancer removal, colonoscopies, bilateral cataract removals Past Anesthesia/Blood Transfusion Reactions: No Reported Reaction Smoking Status: Never smoker - Past Family History Sister(s) Family Medical History: Cancer Additional Family Medical History / Comment(s): Breast CA Mother Additional Family Medical History / Comment(s): Mother of pancreatitis. She had heart problems too. Father Family Medical History: Cancer, COPD, Diabetes Mellitus Additional Family Medical History / Comment(s): skin cancer Medications and Allergies Home Medications Medication Instructions Recorded Confirmed Type Aspirin 81 mg PO DAILY 02/04/15 09/04/21 History Losartan Potassium [Cozaar] 100 mg PO DAILY 01/29/17 09/04/21 History amLODIPine [Norvasc] 5 mg PO DAILY 01/29/17 09/04/21 History metFORMIN HCL [Glucophage] 500 mg PO BID 01/29/17 09/04/21 History Atorvastatin [Lipitor] 10 mg PO HS 09/04/21 09/04/21 History Glimepiride [Amaryl] 2 mg PO BID 09/04/21 09/04/21 History Multivitamins, Thera [Multivitamin 1 tab PO DAILY 09/04/21 09/04/21 History (formulary)] Tamsulosin [Flomax] 0.4 mg PO BID 09/04/21 09/04/21 History Vit C/E/Zn/Coppr/Lutein/Zeaxan 1 cap PO BID 09/04/21 09/04/21 History [Preservision Areds 2 Softgel] Allergies Allergy/AdvReac Type Severity Reaction Status Date / Time Penicillins Allergy syncope Verified 09/04/21 10:10 Sulfa (Sulfonamide Allergy Confusion Verified 09/04/21 10:10 Antibiotics) Physical Exam Vitals: Vital Signs Temp Pulse Pulse Resp BP BP Pulse Ox 09/04/21 16:42 79 18 09/04/21 16:35 97.3 F L 79 18 149/86 95 09/04/21 15:44 78 18 128/74 99 09/04/21 12:02 80 18 126/78 100 09/04/21 09:56 74 18 142/82 96 09/04/21 09:48 18 09/04/21 09:30 97.5 F L 82 16 174/87 98 Intake and Output 09/04/21 09/04/21 09/04/21 06:59 14:59 22:59 Other: Voiding Method Toilet Weight 93.894 kg 93.894 kg Results 09/05/21 05:46 09/05/21 05:46 Cardiac Enzymes 09/04/21 09/04/21 09/04/21 Range/Units 10:18 10:18 15:08 AST 30 (17-59) U/L Troponin I <0.012 <0.012 (0.000-0.034) ng/mL Coagulation 09/04/21 Range/Units 10:18 PT 11.5 (9.0-12.0) sec APTT 24.4 (22.0-30.0) sec CBC 09/04/21 Range/Units 10:18 WBC 5.9 (3.8-10.6) k/uL RBC 4.66 (4.30-5.90) m/uL Hgb 15.0 (13.0-17.5) gm/dL Hct 44.9 (39.0-53.0) % Plt Count 149 L (150-450) k/uL Comprehensive Metabolic Panel 09/04/21 Range/Units 10:18 Sodium 137 (137-145) mmol/L Potassium 4.3 (3.5-5.1) mmol/L Chloride 105 (98-107) mmol/L Carbon Dioxide 26 (22-30) mmol/L BUN 12 (9-20) mg/dL Creatinine 0.73 (0.66-1.25) mg/dL Glucose 141 H (74-99) mg/dL Calcium 9.0 (8.4-10.2) mg/dL AST 30 (17-59) U/L ALT 35 (4-49) U/L Alkaline Phosphatase 65 (38-126) U/L Total Protein 7.4 (6.3-8.2) g/dL Albumin 4.5 (3.5-5.0) g/dL Current Medications Generic Name Dose Route Start Last Admin Trade Name Freq PRN Reason Stop Dose Admin Acetaminophen 650 mg 09/04/21 13:07 09/04/21 15:40 Acetaminophen Tab 325 Mg Tab PO 650 mg Q4HR PRN Administration Fever and/ or Mild Pain Amlodipine Besylate 5 mg 09/05/21 09:00 Amlodipine 5 Mg Tab PO DAILY [facility] Aspirin 81 mg 09/05/21 09:00 Aspirin 81 Mg PO DAILY [facility] Atorvastatin Calcium 10 mg 09/04/21 21:00 Atorvastatin 10 Mg Tab PO HS [facility] Glimepiride 2 mg 09/04/21 17:30 09/04/21 18:12 Glimepiride 2 Mg Tab PO 2 mg AC-BID [facility] Administration Insulin Aspart 0 unit 09/04/21 17:30 09/04/21 18:00 Insulin Aspart (Novolog) 100 Unit/Ml Vial SQ 2 unit ACHS [facility] Administration Protocol Losartan Potassium 100 mg 09/05/21 09:00 Losartan 50 Mg Tab PO DAILY [facility] Metformin HCl 500 mg 09/04/21 17:30 09/04/21 18:00 Metformin 500 Mg Tab PO 500 mg AC-BID [facility] Administration Multivitamins 1 each 09/05/21 09:00 Multivitamins, Thera 1 Each Tab PO DAILY [facility] Naloxone HCl 0.2 mg 09/04/21 12:40 Naloxone 0.4 Mg/Ml 1 Ml Vial IV Q2M PRN Opioid Reversal Tamsulosin HCl 0.4 mg 09/04/21 21:00 Tamsulosin 0.4 Mg Cap.Er.24h PO BID [facility] Intake and Output 09/04/21 09/04/21 09/04/21 06:59 14:59 22:59 Other: Voiding Method Toilet Weight 93.894 kg 93.894 kg Patient Weight 09/05/21 06:59 Weight 93.894 kg 09/04/21 10:18 09/04/21 10:18
[2021-09-05] MEDS ORDERED: MIDAZOLAM 2 MG/2 ML VIAL IVP ONE (12:15)
[2021-09-05] MEDS ORDERED: fentaNYL (PF) 50 MCG/ML 2 ML AMP IVP ONE (12:15)
[2021-09-05] MEDS ORDERED: LIDOCAINE 1% INJ 10MG/ML (20 ML MDV) SQ ONE (12:16)
[2021-09-05] MEDS ORDERED: VERAPAMIL SYRINGE (5 MG/10 ML) INTRAARTER ONE (12:19)
[2021-09-05] MEDS ORDERED: HEPARIN SODIUM 1,000 UN/ML (10ML VL) IV ONE (12:26)
[2021-09-05] MEDS ORDERED: IOPAMIDOL-370 125ML BTL INJ ONE (12:32)
[2021-09-05] MEDS ORDERED: RX INFO: IV CONTRAST WAS GIVEN 1 EACH MISC MISCELLANE PRN (12:36)
--- NOTE | 2021-09-05 12:36 | P.CARDCATH ---
Description of Procedure: PROCEDURES PERFORMED: Left heart catheterization, bilateral coronary angiography INDICATION: Cardiomyopathy, chest pain with exertion HISTORY: Patient is a pleasant 75-year-old male with a history of diabetes mellitus, hypertension who has been experiencing increased chest pressure and shortness breath with exertion and was found to have cardiomyopathy. Therefore heart catheterization was recommended. CONSENT:I have discussed the risks, benefits and alternative therapies for the above-mentioned procedure and for both sedation/analgesia as well as necessary blood product administration, if indicated, as they pertain to this patient. The patient has indicated understanding and acceptance of the risks and procedures discussed. PROCEDURE: After the risks, benefits and alternatives of the above mentioned procedure explained in detail with the patient, informed consent was obtained. Patient was taken to the catheterization lab and prepped and draped in usual fashion. 1% lidocaine was used to anesthetize the right radial artery. A 6- Kenyan sheath was placed in the right radial artery using modified Seldinger technique. Left coronary angiography was performed with a 5-Kenyan JL 3.5 catheter and right coronary angiography was performed with a 5-Kenyan JR5 catheter in various views. A 5-Kenyan FR5 catheter was inserted into the left ventricle and pressure measurements were obtained. The right radial sheath was removed and a TR band was placed with hemostasis achieved. The patient tolerated the procedure well. Patient was transported back to the post catheterization holding area in stable condition. Conscious Sedation: Patient was monitored under the direct supervision of vision of myself for conscious sedation using Versed and fentanyl for a total duration of 17 minutes HEMODYNAMICS: Aorta: 102/79 LV: 112/5, LVEDP 10 SELECTIVE CORONARY ARTERIOGRAPHY: LEFT MAIN: The left main is a large caliber vessel which bifurcates into the LAD and circumflex. There is no significant stenosis. LEFT ANTERIOR DESCENDING CORONARY ARTERY: LAD is a large caliber vessel which wraps around to the apex. There is no significant stenosis. LEFT CIRCUMFLEX CORONARY ARTERY: Left circumflex is a moderate caliber vessel without significant stenosis. RIGHT CORONARY ARTERY: The right coronary artery is a large caliber vessel which gives off a PDA and PLV branch and is the dominant vessel. There is no significant stenosis. FINAL IMPRESSION: 1. Normal coronary arteries as described above. 2. Normal left sided filling pressures PLAN: 1. Aggressive risk factor modification per most recent ACC/AHA guidelines. 2. Follow-up in the office in 1-2 weeks.
[2021-09-05 12:55] LABS: Glucose,Whole Blood 138 mg/dL (75-99)
[2021-09-05] MEDS: HEPARIN SODIUM,PORCINE/PF 5,000 UNIT/0.5 ML SYRINGE SQ SCH (20:04)
[2021-09-05] MEDS: ATORVASTATIN 10 MG TAB PO SCH (20:04)
[2021-09-05 20:44] LABS: Glucose,Whole Blood 196 mg/dL (75-99)
[2021-09-06] MEDS ORDERED: HEPARIN SODIUM,PORCINE 2,500 UNIT in SODIUM CHLORIDE 0.9% 250 ML IRRIGATION PRN (07:00)
[2021-09-06] MEDS ORDERED: HEPARIN SODIUM,PORCINE 10,000 UNIT in SODIUM CHLORIDE 0.9% 1,000 ML IRRIGATION PRN (07:00)
[2021-09-06 07:24] LABS: Glucose,Whole Blood 151 mg/dL (75-99)
[2021-09-06 07:47] VITALS: BP 135/78; PULSE 83; RESP 16; TEMP 97.6
[2021-09-06] MEDS ORDERED: carvediloL 3.125 MG TAB PO SCH (08:45)
[2021-09-06] MEDS: LOSARTAN 50 MG TAB PO SCH (08:56)
[2021-09-06] MEDS: INSULIN ASPART (NovoLOG) 100 UNIT/ML VIAL SQ SCH ×2 (08:56→12:33)
[2021-09-06] MEDS: HEPARIN SODIUM,PORCINE/PF 5,000 UNIT/0.5 ML SYRINGE SQ SCH (08:56)
[2021-09-06] MEDS: GLIMEPIRIDE 2 MG TAB PO SCH (08:57)
[2021-09-06] MEDS: TAMSULOSIN 0.4 MG CAP.ER.24H PO SCH (08:57)
[2021-09-06] MEDS: ASPIRIN 81 MG PO SCH (08:57)
[2021-09-06] MEDS: MULTIVITAMINS, THERA 1 EACH TAB PO SCH (08:57)
[2021-09-06] MEDS ORDERED: PANTOPRAZOLE 40 MG/10 ML VIAL IVP SCH (09:00)
--- NOTE | 2021-09-06 09:40 | P.PN ---
Subjective This is Dr. Tapia dictating an H/P on this patient The patient was interviewed and examined IMPRESSION / ASSESSMENT: Patient complains of shortness of breath and exertion with a normal BNP. Left ventricle systolic function is reduced, no evidence for CHF even on a chest x-ray, normal BNP Patient complains of chest discomfort with a normal twelve-lead EKG without any ST segment abnormalities and normal troponins Type 2 diabetes Symptoms are provoked by climbing 1 flight of stairs PLAN: In view of type 2 diabetes, hypertension shortness of breath on exertion associated with chest pressure and a normal BNP and reduced LV systolic function I would recommend coronary angiography. I spoke to Dr. Hernandez. We'll proceed with coronary telemetry today For the management thereafter HPI patient was short of breath for the last 2 weeks. Shortness of breath after climbing a flight of stairs Mid chest discomfort History of hypertension, on losartan and amlodipine History of diabetes, dyslipidemia, on atorvastatin ALLERGIES to penicillin and sulfa ROS: No fever chills or rigors, no cough, phlegm or expectoration, no nausea, vomiting or diarrhea, no hematuria, dysuria, no musculoskeletal complaints, no strokes or seizures, no skin lesions. EXAMINATION: Blood pressure 142/82 mmHg, respirations nonlabored Pulse rate in the 70s and 80s, afebrile Normal heart sounds no murmurs or gallops Breath sounds are clear no rhonchi no crackles No JVD Patient was ambulating around comfortably in the room REVIEW OF LABS, ECG & MEDICAL DATA Twelve-lead EKG shows sinus rhythm normal [place] narrow QRS normal ST segments left axis deviation No evidence for ischemia No abnormalities and chest x-ray 2-D echo shows severe LV dysfunction ejection fraction 25-30%, mildly enlarged RV Normal white count, hemoglobin 15, platelet count 149,000 Sodium 137 potassium 4.3 BUN/creatinine normal D-dimer normal Troponins normal BMP, NT pro is normal HISTORY OF PRESENTING ILLNESS This is a pleasant 75-year-old male who presented with episodes of dyspnea with exertion as well as chest pain with exertion and was found to have new onset cardiomyopathy. He underwent heart catheterization yesterday which showed normal coronary arteries with normal left-sided filling pressures. His medications were changed including the addition of carvedilol and currently has been feeling well. He states he was walking the christy without any dyspnea or chest pain. Denies any lightheadedness. PHYSICAL EXAMINATION Vital signs reviewed. CONSTITUTIONAL: No apparent distress. HEENT: Head is normocephalic. Pupils are equal, round. Sclerae anicteric. Mucous membranes of the mouth are moist. No JVD. No carotid bruit. CHEST EXAMINATION: Lungs are clear to auscultation. No chest wall tenderness is noted on palpation or with deep breathing. HEART EXAMINATION: Regular rate and rhythm. S1, S2 heard. No murmurs, gallops or rub. ABDOMEN: Soft, nontender. Positive bowel sounds. EXTREMITIES: 2+ peripheral pulses, no lower extremity edema and no calf tenderness. NEUROLOGIC EXAMINATION: Patient is awake, alert and oriented x3. ASSESSMENT 1. Acute on chronic systolic heart failure, improved 2. Nonischemic cardiomyopathy 3. Chest pain with exertion no significant coronary artery disease 4. Hypertension PLAN Heart catheterization and echo reviewed with no significant CAD and nonischemic cardiomyopathy. Continue with heart failure regimen and patient appears stable for discharge home today. Follow-up in office in 1 week. Objective - Vital Signs Vital signs: Vital Signs Temp 97.6 F 09/06/21 07:00 Pulse 83 09/06/21 07:00 Resp 16 09/06/21 07:00 BP 135/78 09/06/21 07:00 Pulse Ox 97 09/06/21 07:00 Intake & Output 09/05/21 09/06/21 09/06/21 18:59 06:59 18:59 Intake Total 290 118 Balance 290 118 Intake: IV 50 Oral 240 118 Other: Voiding Method Toilet Toilet # Voids 3 1 - Labs CBC & Chem 7: 09/05/21 05:46 09/05/21 05:46 Labs: Abnormal Lab Results - Last 24 Hours (Table) 09/05/21 09/05/21 09/06/21 Range/Units 12:54 20:42 07:23 POC Glucose (mg/dL) 138 H 196 H 151 H (75-99) mg/dL
[2021-09-06 12:08] LABS: Glucose,Whole Blood 204 mg/dL (75-99)
[2021-09-08] MEDS ORDERED: metFORMIN 500 MG TAB PO SCH (07:30)
[2021-09-08 14:45] LABS: Chol/HDL Ratio 3.64 Ratio; LDL Cholesterol,Calculated 63.4 mg/dL (0.0-131.0)
== END 2021-09-06 13:45 | disposition home or self-care (01) ==
LOC: EC 09:28 → 6NMEDSUR 12:40
PROVIDERS: ADMIT Family Medicine; ATTEND Family Medicine
DX: R07.89 Other chest pain (principal); I11.0 Hypertensive heart disease with heart failure; I50.23 Acute on chronic systolic (congestive) heart failure; E11.9 Type 2 diabetes mellitus without complications; E78.5 Hyperlipidemia, unspecified; M19.90 Unspecified osteoarthritis, unspecified site; N40.0 Benign prostatic hyperplasia without lower urinary tract symptoms; I42.8 Other cardiomyopathies; K21.9 Gastro-esophageal reflux disease without esophagitis; K57.90 Diverticulosis of intestine, part unspecified, without perforation or abscess without bleeding; H35.30 Unspecified macular degeneration; E66.9 Obesity, unspecified; Z68.29 Body mass index [BMI] 29.0-29.9, adult; N28.9 Disorder of kidney and ureter, unspecified; Z98.41 Cataract extraction status, right eye; Z98.42 Cataract extraction status, left eye; Z96.1 Presence of intraocular lens; Z79.82 Long term (current) use of aspirin; Z79.84 Long term (current) use of oral hypoglycemic drugs; Z79.899 Other long term (current) drug therapy; Z88.0 Allergy status to penicillin; Z88.2 Allergy status to sulfonamides; Z85.828 Personal history of other malignant neoplasm of skin; Z87.19 Personal history of other diseases of the digestive system; Z87.442 Personal history of urinary calculi; Z96.612 Presence of left artificial shoulder joint; Z90.49 Acquired absence of other specified parts of digestive tract; Z86.16 Personal history of COVID-19; Z80.3 Family history of malignant neoplasm of breast; Z80.8 Family history of malignant neoplasm of other organs or systems; Z82.49 Family history of ischemic heart disease and other diseases of the circulatory system; Z82.5 Family history of asthma and other chronic lower respiratory diseases; Z83.3 Family history of diabetes mellitus; Z83.79 Family history of other diseases of the digestive system
CPT/HCPCS: 93458; 99285; 96372; 36415; 93005; 93306; 85379; 83880; 80053; 80048; 80061; 83735; 84484; 85025 ×2; 85610; 85730; 83036; 71046; G0378 ×3; C1769 ×2; C1894; J2250; J2001; J3010; J1644 ×3; C9113; Q9967